=== PATIENT | female | born 1990 | race Two or more races ===

== ENCOUNTER 2018-06-08 12:24 | Emergency (ER) | payer BC ==
[2018-06-08 12:33] VITALS: BP 147/89
--- NOTE | 2018-06-08 12:47 | ER Document Report ---
ED Medical Screen (RME) - General Chief Complaint: Leg Swelling Stated Complaint: SWELLING IN LEG Time Seen by Provider: 06/08/18 12:41 Mode of Arrival: Ambulatory Information source: Patient TRAVEL OUTSIDE OF THE [place] IN LAST 30 DAYS: No - HPI Patient complains to provider of: Redness and itching in the left leg Onset: Other - 28-year-old female with a history of hypertension in the past that presents for evaluation of redness and itching in the left lower extremity which she says developed approximately 3 days prior was initially bigger with little bit of burning and itching and steadily been improving there since she has been putting some ice on it to try and help with it. She talked to a friend today who made her scared and prompted her to get it "checked out". She denies fevers, chills, shortness of breath abdominal pain diarrhea constipation dysuria known insect exposures or otherwise. She does not take any medications that either thin or thick in her blood, she does not have a history of blood clots in the past, does not smoke cigarettes is never had a thromboembolic event. - Related Data Allergies/Adverse Reactions: Penicillins Allergy (Verified 06/08/18 12:29) Past Medical History - General Information source: Patient - Social History Frequency of alcohol use: Occasional Drug Abuse: None Renal/ Medical History: Denies: Hx Peritoneal Dialysis Review of Systems - Review of Systems -: Yes All other systems reviewed and negative Physical Exam - Vital signs Vitals: Temp Pulse Resp BP Pulse Ox 98.4 F 94 16 147/89 H 100 06/08/18 12:31 06/08/18 12:31 06/08/18 12:31 06/08/18 12:31 06/08/18 12:31 Interpretation: Normal - General General appearance: Appears well, Alert - HEENT Head: Normocephalic, Atraumatic Eyes: Normal Pupils: PERRL - Respiratory Respiratory status: No respiratory distress Chest status: Nontender Breath sounds: Normal Chest palpation: Normal - Cardiovascular Rhythm: Regular Heart sounds: Normal auscultation Murmur: No - Abdominal Inspection: Normal Distension: No distension Bowel sounds: Normal Tenderness: Nontender Organomegaly: No organomegaly - Back Back: Normal, Nontender - Extremities General upper extremity: Normal inspection, Nontender, Normal color, Normal ROM, Normal temperature General lower extremity: Normal inspection, Nontender, Normal color, Normal ROM, Normal temperature, Normal weight bearing. No: David's sign - Neurological Neuro grossly intact: Yes Cognition: Normal Orientation: AAOx4 [place] Coma Scale Eye Opening: Spontaneous [place] Coma Scale Verbal: Oriented [place] Coma Scale Motor: Obeys Commands [place] Coma Scale Total: 15 Speech: Normal Motor strength normal: LUE, RUE, LLE, RLE Sensory: Normal - Psychological Associated symptoms: Normal affect, Normal mood - Skin Skin Temperature: Warm Skin Moisture: Dry Skin Color: Other - There is an erythematous confluent area of skin on the lateral aspect just inferior to the knee without any underlying fluctuance, overlying purulence or drainage. Course - Re-evaluation Re-evalutation: 06/08/18 12:49 There is a 28-year-old female who presents for evaluation of redness and swelling in the left lower extremity. On examination the skin appears to be slightly inflamed. He has been shrinking in size there since has an itching and burning quality, likely this represents an insect bite. We will prevent this from developing into cellulitis if it were potentially to be developing. Will be given Atarax as well as Keflex. Patient was discharged with return precautions and expectant management. 06/08/18 12:50 Specifically I do not believe that this represents a more serious underlying cause of her leg redness such as but not limited to cellulitis, DVT, or otherwise. - Vital Signs Vital signs: Temp Pulse Resp BP Pulse Ox 98.4 F 94 16 147/89 H 100 06/08/18 12:31 06/08/18 12:31 06/08/18 12:31 06/08/18 12:31 06/08/18 12:31 Doctor's Discharge - Discharge Clinical Impression: Erythema, Skin swelling Condition: Good Disposition: HOME, SELF-CARE Additional Instructions: You were seen today in the emergency department for the redness and swelling in your left leg. You had evaluation including a physical exam. I believe this is likely a reaction possibly to a bite. You have been given a brief prescription of an antibiotic to prevent it from becoming a skin infection. You should use any antihistamine which you prefer such as Benadryl, Zyrtec or otherwise to help with the itchiness. Return in case you have any worsening fevers, chills, the redness begins to move up the leg or you feel much worse. Prescriptions: Cephalexin Monohydrate [Keflex 500 mg Capsule] 500 mg PO Q6H 5 Days #20 capsule Hydroxyzine HCl [Atarax 25 mg Tablet] 1 - 2 tab PO QID #25 tablet
== END 2018-06-08 12:52 | disposition home or self-care (01) ==
LOC: ER 12:24
DX: M79.89 Other specified soft tissue disorders (principal); I10 Essential (primary) hypertension
CPT/HCPCS: 99283

== ENCOUNTER 2018-06-17 08:59 | Emergency (ER) | payer BC ==
--- NOTE | 2018-06-17 09:21 | ER Document Report ---
ED Medical Screen (RME) - General Chief Complaint: Allergic Reaction Stated Complaint: SWELLING/ITCHING ARMS AND FACE Time Seen by Provider: 06/17/18 09:19 TRAVEL OUTSIDE OF THE [place] IN LAST 30 DAYS: No - Related Data Allergies/Adverse Reactions: Penicillins Allergy (Verified 06/17/18 09:00) Past Medical History Renal/ Medical History: Denies: Hx Peritoneal Dialysis Physical Exam - Vital signs Vitals: Temp Pulse Resp BP Pulse Ox 98.6 F 87 14 149/88 H 100 06/17/18 09:06 06/17/18 09:06 06/17/18 09:06 06/17/18 09:06 06/17/18 09:06 Course - Re-evaluation Re-evalutation: 06/17/18 09:20 Is a 28-year-old female with a history of hypertension that presents for her second visit related to erythema and swelling. Initially had been on her left lower extremity that was in her left upper extremity and right upper extremity which she attributes to having been bitten by a fire ant previously. Her left upper extremity does demonstrate erythema proximal stranding from the wrist. Believe that she will require more further evaluation. Have initiated workup. I have seen and performed a rapid medical screening examination on this patient, workup has been initiated however there will require further evaluation reassessment and disposition determination from a secondary provider. - Vital Signs Vital signs: Temp Pulse Resp BP Pulse Ox 98.6 F 87 14 149/88 H 100 06/17/18 09:06 06/17/18 09:06 06/17/18 09:06 06/17/18 09:06 06/17/18 09:06 Doctor's Discharge - Discharge Referrals: PRAVEEN MURPHY MD [Primary Care Provider] - Follow up as needed
--- NOTE | 2018-06-17 09:23 | ER Document Report ---
ED General - General Chief Complaint: Allergic Reaction Stated Complaint: SWELLING/ITCHING ARMS AND FACE Time Seen by Provider: 06/17/18 09:19 Notes: Patient is a 28-year-old female that presents to the emergency department for chief complaint of possible allergic reaction. Patient states that she was bit by fire ants on 14 June, on her feet and hands, she was initially seen in the ED, and was prescribed Keflex and hydroxyzine at that time for itching, for possible cellulitis but her symptoms persisted, and she got improvement of the redness that she initially had on her left lower extremity, but now she has redness extending from her middle finger of her left hand, up her forearm, as well as on her wrist on the right arm. She denies having any pain but has pressure because she feels swollen as a result of this, she states she has mild tenderness with palpating both her forearms. She denies having any throat swelling, or sensation of difficulty breathing, wheezing, nausea, or vomiting. She states she has been taking the Keflex but has missed several doses since it was prescribed. She does report a history of penicillin allergy as well. Past Medical History: Hypertension Past Surgical History: Denies pertinent or recent surgical history Social History: Denies tobacco, alcohol or drug use. Family History: Reviewed and noncontributory for presenting illness Allergies: Reviewed, see documented allergy list. REVIEW OF SYSTEMS: Other than noted above, the 12 point review of systems was reviewed with the patient and were negative, all pertinent findings are included in the HPI. PHYSICAL EXAMINATION: Vital signs reviewed, nursing noted reviewed. GENERAL: Well-appearing, well-nourished and in no acute distress. HEAD: Atraumatic, normocephalic. EYES: Eyes appear normal, extraocular movements intact, sclera anicteric, conjunctiva are normal. ENT: nares patent, oropharynx clear without exudates. Moist mucous membranes. NECK: Normal range of motion, supple without lymphadenopathy LUNGS: Breath sounds clear to auscultation bilaterally and equal. No wheezes rales or rhonchi. HEART: Regular rate and rhythm without murmurs ABDOMEN: Soft, nontender, normoactive bowel sounds. No rebound, guarding, or rigidity. No masses appreciated. EXTREMITIES: Nontender, good range of motion, no pitting or edema. NEUROLOGICAL: No focal neurological deficits. Moves all extremities spontaneously Motor and sensory grossly intact on exam. PSYCH: Normal mood, normal affect. SKIN: Warm, Dry, normal turgor, bilateral upper extremities, have erythematous areas, wrapping nearly circumferentially on the right wrist, with some associated edema, that is generalized, mild tenderness to palpation, but no increased warmth, there is similar erythematous area, with a few bite zimmerman on the left middle finger, that has extension of the erythema from the middle finger up the dorsum of the left hand, into the forearm. This erythema rash seems most consistent with an allergic reaction, localized secondary to fire ant bites as opposed to cellulitis. TRAVEL OUTSIDE OF THE [place] IN LAST 30 DAYS: No - Related Data Allergies/Adverse Reactions: Penicillins Allergy (Verified 06/17/18 09:00) Past Medical History - Social History Smoking Status: Never Smoker Family History: Reviewed & Not Pertinent Patient has suicidal ideation: No Patient has homicidal ideation: No Renal/ Medical History: Denies: Hx Peritoneal Dialysis Physical Exam - Vital signs Vitals: Temp Pulse Resp BP Pulse Ox 98.6 F 87 14 149/88 H 100 06/17/18 09:06 06/17/18 09:06 06/17/18 09:06 06/17/18 09:06 06/17/18 09:06 Course - Re-evaluation Re-evalutation: Patient seen and examined vital signs reviewed. Laboratory data and imaging were ordered as appropriate for the patient's presenting symptoms and complaint, with consideration of any critical or life threatening conditions that may be associated with their obtained history and exam as noted above. Patient was treated with IV Solu-Medrol, and IV Pepcid Results were reviewed when available and demonstrated mild leukocytosis, likely acute phase stress reactant, secondary to fire ant significant localized reaction The patient was re-evaluated and was stable, and improved, no signs of sepsis, patient did not appear ill, she only had mild tenderness with palpation to these areas of erythema, which is leading more towards acute inflammatory reaction secondary to fire ant bites, as opposed to cellulitis, however it is also possible that the patient is having an allergic reaction to the Keflex given penicillin allergy, so I advised her to discontinue the Keflex, will place her o n doxycycline, for 5 days twice daily, also given a prescription for prednisone, and EpiPen, Pepcid and Zyrtec, to help with her symptoms, I advised her to use the EpiPen only if she had throat swelling, or difficulty breathing, and to carry it with her at all times, given the significant reaction that she had to this fire and bite. Evaluation was most consistent with acute inflammatory response and allergic reaction Results were discussed with the patient at this point, after careful consider ation I feel that that patient can be discharged from the emergency department, the patient was educated treatments and reasons to return to the emergency department based on their presumed diagnosis as noted above, they were advised to followup with a primary care physician in 2-3 days. Patient was agreeable to plan of care. *Note is created using voice recognition software and may contain spelling, syntax or grammatical errors. Laboratory 06/17/18 06/17/18 09:29 09:29 WBC 11.6 H RBC 5.03 Hgb 13.2 Hct 39.8 MCV 79 L MCH 26.2 L MCHC 33.1 RDW 16.2 H Plt Count 312 Seg Neutrophils % 72.5 Lymphocytes % 18.2 Monocytes % 7.4 Eosinophils % 1.6 Basophils % 0.3 Absolute Neutrophils 8.4 H Absolute Lymphocytes 2.1 Absolute Monocytes 0.9 Absolute Eosinophils 0.2 Absolute Basophils 0.0 Sodium 137.1 Potassium 4.4 Chloride 106 Carbon Dioxide 24 Anion Gap 7 BUN 13 Creatinine 0.66 Est GFR ( Amer) > 60 Est GFR (Non-Af Amer) > 60 Glucose 92 Calcium 9.1 Total Bilirubin 0.4 Direct Bilirubin 0.1 Neonat Total Bilirubin Not Reportable Neonat Direct Bilirubin Not Reportable Neonat Indirect Bili Not Reportable AST 19 ALT 19 Alkaline Phosphatase 73 Total Protein 7.2 Albumin 4.0 - Vital Signs Vital signs: Temp Pulse Resp BP Pulse Ox 98.5 F 85 14 152/86 H 98 06/17/18 10:21 06/17/18 10:21 06/17/18 09:06 06/17/18 10:21 06/17/18 10:21 - Laboratory Result Diagrams: 06/17/18 09:29 06/17/18 09:29 Laboratory results interpreted by me: 06/17/18 09:29 WBC 11.6 H MCV 79 L MCH 26.2 L RDW 16.2 H Absolute Neutrophils 8.4 H Discharge - Discharge Clinical Impression: Allergic reaction Qualifiers: Encounter type: initial encounter Qualified Code(s): T78.40XA - Allergy, unspecified, initial encounter Fire ant bite Qualifiers: Encounter type: initial encounter Injury intent: accidental or unintentional Qualified Code(s): T63.421A - Toxic effect of venom of ants, accidental (unintentional), initial encounter Condition: Stable Disposition: HOME, SELF-CARE Instructions: Acute Allergic Reaction ([facility]) Additional Instructions: Please monitor for any worsening symptoms, and if you do have worsening redness, fevers, chills, nausea or vomiting, do not hesitate to return to the emergency department. Please take all medications as directed. The EpiPen should be used if you feel throat swelling, or difficulty breathing as a result of an insect sting, or other allergic reaction. Prescriptions: RX: Doxycycline Hyclate [Vibramycin] 100 mg PO BID #10 capsule Epinephrine [Epipen] 0.3 mg IJ PRN PRN #1 auto.injct PRN Reason: allergic reaction Famotidine [Pepcid 20 mg Tablet] 20 mg PO BID #20 tablet Loratadine [Claritin] 10 mg PO DAILY #30 tablet RX: Prednisone [Deltasone] 20 mg PO DAILY #10 tablet Forms: Return to Work Referrals: PRAVEEN MURPHY MD [Primary Care Provider] - Follow up in 3-5 days
[2018-06-17 09:46] LABS: ABSOLUTE EOSINOPHILS # (AUTO) 0.2 10^3/uL (0.0-0.6); ABSOLUTE LYMPHOCYTES (AUTO) 2.1 10^3/uL (0.5-4.7); ABSOLUTE MONOCYTES (AUTO) 0.9 10^3/uL (0.1-1.4); ABSOLUTE NEUT (AUTO) 8.4 10^3/uL (1.7-8.2); BASOPHILS % (AUTO) 0.3 % (0-2); EOSINOPHILS % (AUTO) 1.6 % (0-6); HEMATOCRIT 39.8 % (36.0-47.0); HEMOGLOBIN 13.2 g/dL (12.0-15.5); LYMPHOCYTES % (AUTO) 18.2 % (13-45); MEAN CORPUSCULAR HEMOGLOBIN 26.2 pg (27.0-33.4); MEAN CORPUSCULAR HGB CONC 33.1 g/dL (32.0-36.0); MEAN CORPUSCULAR VOLUME 79 fl (80-97); MONOCYTES % (AUTO) 7.4 % (3-13); PLATELET COUNT 312 10^3/uL (150-450); RED BLOOD COUNT 5.03 10^6/uL (3.72-5.28); RED CELL DISTRIBUTION WIDTH 16.2 % (11.5-14.0); SEGMENTED NEUTROPHILS % (AUTO) 72.5 % (42-78); TOTAL CELLS COUNTED % (AUTO) 100 %; WHITE BLOOD COUNT 11.6 10^3/uL (4.0-10.5)
[2018-06-17] MEDS ORDERED: METHYLPREDNISOLONE INJ 125 MG/2 ML SDV IV ONE (10:04)
[2018-06-17] MEDS ORDERED: FAMOTIDINE INJ/PF 20 MG/2 ML SDV IV ONE (10:05)
[2018-06-17 10:08] LABS: ALANINE AMINOTRANSFERASE 19 U/L (9-52); ALKALINE PHOSPHATASE 73 U/L (38-126); ANION GAP 7 (5-19); ASPARTATE AMINO TRANSFERASE 19 U/L (14-36); BILIRUBIN,DIRECT 0.1 mg/dL (0.0-0.4); BILIRUBIN,TOTAL 0.4 mg/dL (0.2-1.3); BLOOD UREA NITROGEN 13 mg/dL (7-20); CALCIUM 9.1 mg/dL (8.4-10.2); CARBON DIOXIDE 24 mmol/L (22-30); CHLORIDE 106 mmol/L (98-107); GLUCOSE 92 mg/dL (75-110); POTASSIUM 4.4 mmol/L (3.6-5.0); SODIUM 137.1 mmol/L (137-145); TOTAL PROTEIN 7.2 g/dL (6.3-8.2)
[2018-06-17 10:24] VITALS: BP 152/86
== END 2018-06-17 10:24 | disposition home or self-care (01) ==
LOC: ER 08:59
DX: T63.421A Toxic effect of venom of ants, accidental (unintentional), initial encounter (principal); X58.XXXA Exposure to other specified factors, initial encounter; I10 Essential (primary) hypertension; Z88.0 Allergy status to penicillin
CPT/HCPCS: 99283; 96374; 96375; 36415; 85025; 80053; J2930; S0028